=== PATIENT | male | born 1955 | race Caucasian/White ===

== ENCOUNTER 2021-03-10 11:15 | Inpatient (IN) | payer OTHER ==
[~2021-03-10] VITALS: Ht 177.8 cm; Wt 118.1 kg
[~2021-03-10 11:15] MED LIST: CELEBREX **OUT100 MG PO; FLEXERIL10 MG PO
[2021-03-10 12:58] LABS: BASOPHIL 0.3 % (0-2); EOSINOPHIL 0.2 % (0-5); HCT 55.3 % (42.0-52.0); HGB 18.4 g/dl (13.2-18.0); LYMPHOCYTE 6.6 % (15-48); MCH 30.6 pg (25.0-31.0); MCHC 33.3 g/dL (32.0-36.0); MCV 91.9 fL (78.0-100.0); MPV 9.6 fL (6.0-9.5); NEUTROPHIL 87.4 % (41-80); NRBC 0; PLT 168 K/uL (150-400); RBC 6.02 M/uL (4.70-6.00); RDW 13.7 % (11.5-14.0); WBC 11.8 K/uL (4.0-10.5)
[2021-03-10 13:21] LABS: ALBUMIN 3.9 g/dL (3.4-5.0); BILIRUBIN - TOTAL 1.3 mg/dL (0.2-1.0); BUN/CREAT RATIO (CALC) 10.7 RATIO; CREATININE 1.21 mg/dL (0.67-1.17); GLOBULIN (CALCULATION) 4.7 g/dL; POTASSIUM 4.3 mmol/L (3.5-5.1); TOTAL PROTEIN 8.6 g/dL (6.4-8.2)
[2021-03-10 14:30] LABS: LACTIC ACID 2.9 mmol/L (0.4-1.9)
[2021-03-10 14:55] LABS: BILIRUBIN NEGATIVE (NEGATIVE); BLOOD TRACE-INTACT Ery/uL (NEGATIVE); CLARITY CLEAR (CLEAR); COLOR YELLOW (YELLOW); GLUCOSE (U) NORMAL (NORMAL); LEUKOCYTES NEGATIVE Leu/uL (NEGATIVE); NITRITE NEGATIVE (NEGATIVE); PROTEIN 2+ mg/dL (NEGATIVE); UROBILINOGEN 0.2 mg/dL (0.2-1.0)
[2021-03-10 15:17] LABS: BACTERIA TRACE; MUCOUS MODERATE
[2021-03-10 18:12] LABS: BILIRUBIN NEGATIVE (NEGATIVE); BLOOD 1+ Ery/uL (NEGATIVE); CLARITY CLEAR (CLEAR); COLOR YELLOW (YELLOW); GLUCOSE (U) NORMAL (NORMAL); LEUKOCYTES NEGATIVE Leu/uL (NEGATIVE); NITRITE NEGATIVE (NEGATIVE); PROTEIN TRACE (LOW) mg/dL (NEGATIVE); UROBILINOGEN 0.2 mg/dL (0.2-1.0)
[2021-03-10 18:16] LABS: BACTERIA TRACE; URIC ACID CRYSTALS MODERATE; URINARY RBC RARE
[2021-03-11] MEDS ORDERED: LOSARTAN POTASS50 MG PO (06:52)
[2021-03-11 06:54] LABS: BASOPHIL 0.2 % (0-2); EOSINOPHIL 0 % (0-5); HCT 46.7 % (42.0-52.0); HGB 15.4 g/dl (13.2-18.0); LYMPHOCYTE 6.6 % (15-48); MCH 30.7 pg (25.0-31.0); MCV 93.2 fL (78.0-100.0); MONOCYTE 5.8 % (0-12); MPV 9.6 fL (6.0-9.5); NEUTROPHIL 86.8 % (41-80); NRBC 0; PLT 141 K/uL (150-400); RBC 5.01 M/uL (4.70-6.00); RDW 14.1 % (11.5-14.0); WBC 12.8 K/uL (4.0-10.5)
[2021-03-11] MEDS ORDERED: ALLERGY RELIEF1 EAC3 PO (06:58)
[2021-03-11 07:14] LABS: BUN/CREAT RATIO (CALC) 15.1 RATIO; CREATININE 1.06 mg/dL (0.67-1.17)
[2021-03-12 06:09] LABS: BASOPHIL 0.2 % (0-2); HCT 45.8 % (42.0-52.0); LYMPHOCYTE 9.4 % (15-48); MCH 30.8 pg (25.0-31.0); MCHC 32.8 g/dL (32.0-36.0); MONOCYTE 5.3 % (0-12); MPV 9.5 fL (6.0-9.5); NEUTROPHIL 83.7 % (41-80); NRBC 0; PLT 140 K/uL (150-400); RBC 4.87 M/uL (4.70-6.00); RDW 14.3 % (11.5-14.0); WBC 10.6 K/uL (4.0-10.5)
[2021-03-12 07:09] LABS: ALBUMIN 2.5 g/dL (3.4-5.0); BILIRUBIN - TOTAL 0.8 mg/dL (0.2-1.0); BUN/CREAT RATIO (CALC) 18.6 RATIO; CREATININE 0.97 mg/dL (0.67-1.17); MAGNESIUM 2.1 mg/dL (1.8-2.4); POTASSIUM 3.9 mmol/L (3.5-5.1); TOTAL PROTEIN 6.5 g/dL (6.4-8.2)
[2021-03-13 06:40] LABS: BASOPHIL 0.4 % (0-2); EOSINOPHIL 5.1 % (0-5); HCT 44.3 % (42.0-52.0); HGB 14.5 g/dl (13.2-18.0); LYMPHOCYTE 14.5 % (15-48); MCH 30.9 pg (25.0-31.0); MCHC 32.7 g/dL (32.0-36.0); MCV 94.5 fL (78.0-100.0); MONOCYTE 5.6 % (0-12); MPV 9.4 fL (6.0-9.5); NRBC 0; PLT 151 K/uL (150-400); RBC 4.69 M/uL (4.70-6.00); RDW 14.1 % (11.5-14.0); WBC 9.4 K/uL (4.0-10.5)
[2021-03-13 07:07] LABS: BUN/CREAT RATIO (CALC) 18.7 RATIO; CREATININE 0.91 mg/dL (0.67-1.17); POTASSIUM 3.9 mmol/L (3.5-5.1)
[2021-03-13] MEDS ORDERED: SYMBICORT 80-10.2 GM INH (10:15)
[2021-03-13] MEDS ORDERED: VENTOLIN HFA IN18 GM INH (10:15)
[2021-03-14] MEDS ORDERED: AUGMENTIN 875-1 EACH PO ×2 (13:28→16:06)
[2021-03-14] MEDS ORDERED: MIRALAX 238GM238 GM PO ×2 (13:28→16:06)
[2021-03-14] MEDS ORDERED: PERCOCET 5-3251 EACH PO ×2 (13:28→16:06)
[2021-03-14] MEDS ORDERED: LACTINEX1 EACH PO (13:28)
[2021-03-14] MEDS ORDERED: HIBICLENS118 ML EXT ×2 (13:29→16:06)
== END 2021-03-14 16:40 | disposition home or self-care (01) | DRG 853 ==
LOC: FER 11:15 → FOR 15:37 → FMS 18:40 → FOR 18:40 → FMS 03-13 17:26
PROVIDERS: Internal Medicine; Nurse Practitioner Family; ADMIT Surgery
PROC: 0DBH0ZZ Excision of Cecum, Open Approach (ICD-10-PCS; 2021-03-10)
PROC: 0W9G0ZZ Drainage of Peritoneal Cavity, Open Approach (ICD-10-PCS; 2021-03-10)
PROC: 0DTJ0ZZ Resection of Appendix, Open Approach (ICD-10-PCS; principal; 2021-03-10 14:30)
DX: A41.9 Sepsis, unspecified organism (principal); K35.33 Acute appendicitis with perforation, localized peritonitis, and gangrene, with abscess; K56.7 Ileus, unspecified; Z20.822 Contact with and (suspected) exposure to COVID-19; I10 Essential (primary) hypertension; G47.33 Obstructive sleep apnea (adult) (pediatric); J45.909 Unspecified asthma, uncomplicated; Z91.010 Allergy to peanuts; Z91.048 Other nonmedicinal substance allergy status; Z99.81 Dependence on supplemental oxygen; Z90.49 Acquired absence of other specified parts of digestive tract; Z98.890 Other specified postprocedural states; Z87.891 Personal history of nicotine dependence; Z88.6 Allergy status to analgesic agent; Z80.0 Family history of malignant neoplasm of digestive organs; Z80.1 Family history of malignant neoplasm of trachea, bronchus and lung
CPT/HCPCS: 36415; 80048; 80053; 81001; 83605; 83735; 85025; 87070; 87075; 87077; 87186; 87205; 94010; 94640; 94668; 97161; 97530-GP; C9113; J1100; J1170; J2250; J2270; J2405; J2543; J2704; J3010; J7030; J7120; Q9967; U0002

== ENCOUNTER 2021-07-16 09:49 | Day surgery (SDC) | payer OTHER ==
[~2021-07-16] VITALS: Ht 177.8 cm; Wt 115.7 kg
[~2021-07-16 09:49] MED LIST changes: +ALLERGY RELIEF1 EAC3 PO; +AUGMENTIN 875-1 EACH PO; +FENOFIBRATE145 MG PO; +HIBICLENS118 ML EXT; +LACTINEX1 EACH PO; +LOSARTAN POTASS50 MG PO; +MIRALAX 238GM238 GM PO; +PERCOCET 5-3251 EACH PO; +SYMBICORT 80-10.2 GM INH; +TRELEGY ELLIPT1 EACH INH; +VENTOLIN HFA IN18 GM INH; +VITAMIN B122500 MCG PO; +VITAMIN D350 MC3 PO
[2021-07-16] MEDS ORDERED: ELAVIL50 MG PO (10:15)
[2021-07-16] MEDS ORDERED: TRICOR145 MG PO (10:15)
[2021-07-16] MEDS ORDERED: MAGNESIUM CITR296 ML PO (10:16)
[2021-07-16] MEDS ORDERED: KRILL OIL 5001 EACH PO (10:16)
[2021-07-16] MEDS ORDERED: ASCORBIC ACID500 MG PO (10:17)
[2021-07-16] MEDS ORDERED: ZINC10 MG PO (10:17)
[2021-07-16 10:57] LABS: CREATININE 1.29 mg/dL (0.67-1.17); POTASSIUM 4.5 mmol/L (3.5-5.1)
[2021-07-16 13:34] LABS: BILIRUBIN NEGATIVE (NEGATIVE); BLOOD NEGATIVE Ery/uL (NEGATIVE); CLARITY CLEAR (CLEAR); COLOR YELLOW (YELLOW); GLUCOSE (U) NORMAL (NORMAL); LEUKOCYTES NEGATIVE Leu/uL (NEGATIVE); NITRITE NEGATIVE (NEGATIVE); PROTEIN NEGATIVE (NEGATIVE); SPECIFIC GRAVITY >=1.030 (1.001-1.030); UROBILINOGEN 0.2 mg/dL (0.2-1.0); pH 5.5 (5.0-9.0)
[2021-07-17] MEDS ORDERED: MIRALAX17 GM PO (13:22)
[2021-07-17] MEDS ORDERED: PERCOCET 5-3251 EACH PO (13:22)
== END 2021-07-17 13:27 | disposition home or self-care (01) ==
LOC: FAS 09:49 → FOFB 19:36 → FAS 07-17 08:00
PROVIDERS: Anesthesiology; Surgery
DX: K43.2 Incisional hernia without obstruction or gangrene (principal); E66.8 Other obesity; K66.0 Peritoneal adhesions (postprocedural) (postinfection); L08.9 Local infection of the skin and subcutaneous tissue, unspecified; L98.8 Other specified disorders of the skin and subcutaneous tissue; J45.909 Unspecified asthma, uncomplicated; I10 Essential (primary) hypertension; G47.33 Obstructive sleep apnea (adult) (pediatric); F17.200 Nicotine dependence, unspecified, uncomplicated; Z98.890 Other specified postprocedural states; Z88.6 Allergy status to analgesic agent; Z91.018 Allergy to other foods; Z91.048 Other nonmedicinal substance allergy status; Z90.49 Acquired absence of other specified parts of digestive tract; Z80.0 Family history of malignant neoplasm of digestive organs; Z98.52 Vasectomy status; Z72.89 Other problems related to lifestyle
CPT/HCPCS: 36415; 80048; 81003; 93005; 94010; J0690; J1100; J1170; J1650; J2250; J2405; J2704; J2710; J3010; J3480; J7120